=== PATIENT | male | born 1960 | race African-American/Black ===

== ENCOUNTER 2016-08-03 01:30 | Emergency (ER) | payer MEDICAID ==
[~2016-08-03] VITALS: Ht 175.3 cm; Wt 80.0 kg
[~2016-08-03 01:30] MED LIST: ALBU8.5H3 INH; AMLO5TAB2; ASPI-621 PO; CHLO25TA PO; ERGO500017 PO; GABA300C10 PO; HYDR25TA6; INSU100V12 SQ; INSULIN; LORA10TA62 PO; METF10002 PO; METF850T; METO25TA91; OXYC-74 PO; SERT50TA5 PO; SIMV20TA3; TRAZ150T68 PO; VALS160T3
[2016-08-03] MEDS ORDERED: ACETAMINOPHEN 325 MG TABLET ONE (02:24)
[2016-08-03] MEDS ORDERED: SODIUM CHLORIDE FLUSH 10ML SYR IVF ONE (02:30)
[2016-08-03] MEDS ORDERED: ACETAMINOPHEN 325 MG TABLET PO ONE (02:30)
[2016-08-03] MEDS ORDERED: SODIUM CHLORIDE 0.9% 1,000ML IVBOLUS ONE ×2 (02:30→03:00)
[2016-08-03 02:43] LABS: BLOOD UREA NITROGEN 20 mg/dL (7-18)
[2016-08-03 02:52] LABS: RAPID INFLUENZA A Negative (Negative)
[2016-08-03 02:53] LABS: RAPID INFLUENZA B POSITIVE (Negative)
[2016-08-03] MEDS ORDERED: OSELTAMIVIR 75 MG CAPSULE PO ONE (03:00)
[2016-08-03] MEDS ORDERED: POTASSIUM CHLORIDE 20 MEQ TAB.ER.PRT ONE (03:23)
[2016-08-03] MEDS ORDERED: POTASSIUM CHLORIDE 20 MEQ TAB.ER.PRT PO ONE (03:30)
[2016-08-03 04:09] VITALS: BP 122/70
== END 2016-08-03 04:50 | disposition home or self-care (01) ==
LOC: ED 03:55
DX: J10.1 Influenza due to other identified influenza virus with other respiratory manifestations (principal); B34.9 Viral infection, unspecified; E78.00 Pure hypercholesterolemia, unspecified; E87.6 Hypokalemia; I12.9 Hypertensive chronic kidney disease with stage 1 through stage 4 chronic kidney disease, or unspecified chronic kidney disease; R50.9 Fever, unspecified; R73.9 Hyperglycemia, unspecified
CPT/HCPCS: 36415; 71010; 80048; 81003; 82040; 85025; 87400; 96360; 96361; 99285; J7030

== ENCOUNTER 2017-01-20 18:44 | Emergency (ER) | payer MEDICAID ==
[~2017-01-20] VITALS: Ht 175.3 cm; Wt 89.7 kg
[~2017-01-20 18:44] MED LIST changes: -ALBU8.5H3 INH; +ALBU8.5H8 INH; +OXYC-296 PO; -OXYC-74 PO; +TRAZ150T62 PO; -TRAZ150T68 PO
[2017-01-20 18:45] VITALS: BP 152/103
== END 2017-01-20 20:54 | disposition home or self-care (01) ==
LOC: ED 20:48
DX: L98.9 Disorder of the skin and subcutaneous tissue, unspecified (principal); E78.00 Pure hypercholesterolemia, unspecified; G89.29 Other chronic pain; I10 Essential (primary) hypertension; M54.9 Dorsalgia, unspecified
CPT/HCPCS: 99283

== ENCOUNTER 2017-03-22 01:06 | Emergency (ER) | payer MEDICAID ==
[~2017-03-22] VITALS: Ht 175.3 cm; Wt 87.8 kg
[2017-03-22] MEDS ORDERED: KETOROLAC 30 MG/1 ML ONE (02:39)
[2017-03-22] MEDS ORDERED: OXYcodone/APAP 10/325MG TABLET ONE (02:40)
[2017-03-22] MEDS ORDERED: KETOROLAC 30 MG/1 ML IM ONE (03:00)
[2017-03-22] MEDS ORDERED: OXYcodone/APAP 10/325MG TABLET PO ONE (03:00)
[2017-03-22 04:16] VITALS: BP 135/74
== END 2017-03-22 04:47 | disposition home or self-care (01) ==
LOC: ED 03:55
DX: S93.422A Sprain of deltoid ligament of left ankle, initial encounter (principal); S70.01XA Contusion of right hip, initial encounter; I10 Essential (primary) hypertension; E78.00 Pure hypercholesterolemia, unspecified; W19.XXXA Unspecified fall, initial encounter; Y93.89 Activity, other specified; Y92.89 Other specified places as the place of occurrence of the external cause; Y99.8 Other external cause status
CPT/HCPCS: 72190; 73610; 96372; 99284; J1885

== ENCOUNTER 2017-04-24 13:39 | Emergency (ER) | payer MEDICAID ==
[~2017-04-24] VITALS: Ht 175.3 cm; Wt 86.5 kg
[2017-04-24 13:49] VITALS: BP 127/85
== END 2017-04-24 18:08 ==
LOC: ED 16:09
DX: R11.0 Nausea (principal); R19.7 Diarrhea, unspecified; R51 Headache; Z53.21 Procedure and treatment not carried out due to patient leaving prior to being seen by health care provider

== ENCOUNTER 2017-08-08 19:27 | Emergency (ER) | payer MEDICAID ==
[~2017-08-08] VITALS: Ht 175.3 cm; Wt 88.6 kg
[2017-08-08 20:12] LABS: BASOPHILS # (AUTO) 0.06 x10^3/uL (0-0.1); BASOPHILS % (AUTO) 1 % (0-1); EOSINOPHILS # (AUTO) 0.11 x10^3/uL (0-0.4); EOSINOPHILS % (AUTO) 2 % (1-7); LYMPHOCYTES # (AUTO) 1.69 x10^3/uL (1-3.4); LYMPHOCYTES % (AUTO) 25 % (22-44); MD NO; MEAN CORPUSCULAR HGB CONC 32.6 g/dL (33.2-36.2); MEAN CORPUSCULAR VOLUME 89.1 fL (81-97); MEAN PLATELET VOLUME 8.5 fL (7.4-10.4); MONOCYTES # (AUTO) 0.47 x10^3/uL (0.2-0.8); MONOCYTES % (AUTO) 7 % (2-9); NEUTROPHILS # (AUTO) 4.32 x10^3/uL (1.8-6.8); NEUTROPHILS % (AUTO) 65 % (42-75); PLATELET COUNT 222 x10^3/uL (130-400); RED BLOOD COUNT 5.48 x10^6/uL (4.38-5.82); RED CELL DISTRIBUTION WIDTH 14.3 % (9.4-14.8)
[2017-08-08 20:23] LABS: ALANINE AMINOTRANSFERASE 24 U/L (12-78); ALBUMIN 3.7 g/dL (3.4-5.0); ANION GAP 7 mmol/L (5-15); CALCIUM 9.2 mg/dL (8.5-10.1); CHLORIDE 103 mmol/L (98-107); CREATININE 1.55 mg/dL (0.7-1.3)
[2017-08-08 20:25] LABS: ALKALINE PHOSPHATASE 54 U/L (45-117); BILIRUBIN,TOTAL 0.4 mg/dL (0.2-1.0); TOTAL PROTEIN 7.3 g/dL (6.4-8.2)
[2017-08-08] MEDS ORDERED: METOCLOPRAMIDE 5 MG/ML, 2ML IVPush ONE (20:30)
[2017-08-08 21:19] LABS: MICROSCOPIC NOT IND
[2017-08-08 21:27] LABS: CULTURE INDICATED? NO
[2017-08-08 22:46] VITALS: BP 137/88
== END 2017-08-08 22:50 | disposition home or self-care (01) ==
LOC: ED 22:05
DX: R10.84 Generalized abdominal pain (principal); N18.9 Chronic kidney disease, unspecified; E11.22 Type 2 diabetes mellitus with diabetic chronic kidney disease; E11.65 Type 2 diabetes mellitus with hyperglycemia; I12.9 Hypertensive chronic kidney disease with stage 1 through stage 4 chronic kidney disease, or unspecified chronic kidney disease; E78.00 Pure hypercholesterolemia, unspecified; G89.29 Other chronic pain
CPT/HCPCS: 36415; 74021; 74176; 80053; 81003; 83690; 85025; 93005; 99285

== ENCOUNTER 2017-09-22 19:55 | Emergency (ER) | payer MEDICAID ==
[~2017-09-22] VITALS: Ht 175.3 cm; Wt 87.5 kg
[2017-09-22] MEDS ORDERED: ONDANSETRON ODT 4 MG ONE (20:59)
[2017-09-22] MEDS ORDERED: ONDANSETRON ODT 4 MG PO ONE (21:00)
[2017-09-22 21:23] LABS: BASOPHILS # (AUTO) 0.03 x10^3/uL (0-0.1); BASOPHILS % (AUTO) 0 % (0-1); EOSINOPHILS # (AUTO) 0.11 x10^3/uL (0-0.4); EOSINOPHILS % (AUTO) 2 % (1-7); LYMPHOCYTES # (AUTO) 1.63 x10^3/uL (1-3.4); LYMPHOCYTES % (AUTO) 27 % (22-44); MD NO; MEAN CORPUSCULAR HEMOGLOBIN 29.2 pg (27.5-34.5); MEAN CORPUSCULAR HGB CONC 32.5 g/dL (33.2-36.2); MEAN CORPUSCULAR VOLUME 89.8 fL (81-97); MEAN PLATELET VOLUME 9.3 fL (7.4-10.4); MONOCYTES # (AUTO) 0.48 x10^3/uL (0.2-0.8); MONOCYTES % (AUTO) 8 % (2-9); NEUTROPHILS # (AUTO) 3.69 x10^3/uL (1.8-6.8); NEUTROPHILS % (AUTO) 62 % (42-75); PLATELET COUNT 221 x10^3/uL (130-400); RED CELL DISTRIBUTION WIDTH 13.7 % (9.4-14.8)
[2017-09-22 21:27] LABS: ALANINE AMINOTRANSFERASE 30 U/L (12-78); ALBUMIN 3.7 g/dL (3.4-5.0); ANION GAP 5 mmol/L (5-15); CHLORIDE 99 mmol/L (98-107); CREATININE 1.81 mg/dL (0.7-1.3)
[2017-09-22 21:29] LABS: ALKALINE PHOSPHATASE 69 U/L (45-117); BILIRUBIN,TOTAL 0.2 mg/dL (0.2-1.0); TOTAL PROTEIN 7.1 g/dL (6.4-8.2)
[2017-09-22] MEDS ORDERED: INSULIN REGULAR 100 UNITS/ML, 3ML VIAL ONE (21:56)
[2017-09-22] MEDS ORDERED: INSULIN REGULAR 100 UNITS/ML, 3ML VIAL SQ-INSULIN SCH (22:00)
[2017-09-22 22:01] VITALS: BP 121/82
== END 2017-09-22 22:06 | disposition home or self-care (01) ==
LOC: ED 22:05
DX: A09 Infectious gastroenteritis and colitis, unspecified (principal); E11.65 Type 2 diabetes mellitus with hyperglycemia; I10 Essential (primary) hypertension; E78.00 Pure hypercholesterolemia, unspecified
CPT/HCPCS: 36415; 80053; 85025; 96372; 99284; Q0162

== ENCOUNTER 2017-10-22 02:51 | Emergency (ER) | payer MEDICAID ==
[~2017-10-22] VITALS: Ht 175.3 cm; Wt 86.0 kg
[2017-10-22 03:46] LABS: BASOPHILS # (AUTO) 0.05 x10^3/uL (0-0.1); BASOPHILS % (AUTO) 1 % (0-1); EOSINOPHILS # (AUTO) 0.11 x10^3/uL (0-0.4); EOSINOPHILS % (AUTO) 2 % (1-7); LYMPHOCYTES # (AUTO) 1.88 x10^3/uL (1-3.4); LYMPHOCYTES % (AUTO) 26 % (22-44); MD NO; MEAN CORPUSCULAR HEMOGLOBIN 29.8 pg (27.5-34.5); MEAN CORPUSCULAR HGB CONC 33.3 g/dL (33.2-36.2); MEAN CORPUSCULAR VOLUME 89.4 fL (81-97); MEAN PLATELET VOLUME 9.1 fL (7.4-10.4); MONOCYTES # (AUTO) 0.45 x10^3/uL (0.2-0.8); MONOCYTES % (AUTO) 6 % (2-9); NEUTROPHILS # (AUTO) 4.68 x10^3/uL (1.8-6.8); NEUTROPHILS % (AUTO) 65 % (42-75); PLATELET COUNT 225 x10^3/uL (130-400); RED BLOOD COUNT 5.75 x10^6/uL (4.38-5.82); RED CELL DISTRIBUTION WIDTH 14.4 % (9.4-14.8)
[2017-10-22 03:51] LABS: ALBUMIN 3.8 g/dL (3.4-5.0); ANION GAP 6 mmol/L (5-15); CALCIUM 9.3 mg/dL (8.5-10.1); CHLORIDE 101 mmol/L (98-107); CREATININE 1.62 mg/dL (0.7-1.3)
[2017-10-22] MEDS ORDERED: POTASSIUM CHLORIDE 20 MEQ TAB.ER.PRT ONE (04:23)
[2017-10-22] MEDS ORDERED: POTASSIUM CHLORIDE 20 MEQ TAB.ER.PRT PO ONE (04:30)
[2017-10-22 05:30] VITALS: BP 125/78
== END 2017-10-22 05:32 | disposition home or self-care (01) ==
LOC: ED 03:19
DX: E11.65 Type 2 diabetes mellitus with hyperglycemia (principal); E87.6 Hypokalemia; E78.00 Pure hypercholesterolemia, unspecified
CPT/HCPCS: 36415; 80048; 82040; 85025; 99284

== ENCOUNTER 2017-12-07 07:18 | Emergency (ER) | payer MEDICAID ==
[~2017-12-07] VITALS: Ht 175.3 cm; Wt 89.3 kg
[~2017-12-07 07:18] MED LIST changes: -AMLO5TAB2; +AMLO5TAB7
[2017-12-07 09:01] LABS: MEAN CORPUSCULAR HEMOGLOBIN 29.4 pg (27.5-34.5); MEAN CORPUSCULAR HGB CONC 33.3 g/dL (33.2-36.2); MEAN CORPUSCULAR VOLUME 88.3 fL (81-97); MEAN PLATELET VOLUME 9.1 fL (7.4-10.4); PLATELET COUNT 206 x10^3/uL (130-400); RED BLOOD COUNT 5.63 x10^6/uL (4.38-5.82); RED CELL DISTRIBUTION WIDTH 14.5 % (9.4-14.8)
[2017-12-07 09:06] LABS: ALBUMIN 3.6 g/dL (3.4-5.0); ANION GAP 6 mmol/L (5-15); CHLORIDE 104 mmol/L (98-107)
[2017-12-07 09:09] LABS: ALANINE AMINOTRANSFERASE 31 U/L (12-78); ALKALINE PHOSPHATASE 74 U/L (45-117); BILIRUBIN,TOTAL 0.4 mg/dL (0.2-1.0); CREATININE 1.41 mg/dL (0.7-1.3); TOTAL PROTEIN 7.1 g/dL (6.4-8.2)
[2017-12-07 09:25] LABS: BASOPHILS # (AUTO) 0.02 x10^3/uL (0-0.1); BASOPHILS % (AUTO) 1 % (0-1); EOSINOPHILS # (AUTO) 0.17 x10^3/uL (0-0.4); EOSINOPHILS % (AUTO) 4 % (1-7); LYMPHOCYTES # (AUTO) 0.94 x10^3/uL (1-3.4); LYMPHOCYTES % (AUTO) 20 % (22-44); MD SCAN; MONOCYTES # (AUTO) 0.58 x10^3/uL (0.2-0.8); MONOCYTES % (AUTO) 13 % (2-9); NEUTROPHILS # (AUTO) 2.89 x10^3/uL (1.8-6.8); NEUTROPHILS % (AUTO) 63 % (42-75)
[2017-12-07] MEDS ORDERED: POTASSIUM CHLORIDE 10% 40 MEQ/30 ML UDC PO ONE (10:00)
[2017-12-07 11:16] LABS: MICROSCOPIC NOT IND
[2017-12-07 11:17] LABS: CULTURE INDICATED? NO
[2017-12-07 12:32] VITALS: BP 120/90
[2017-12-07 13:05] LABS: CLOSTRIDIUM DIFFICILE ANTIGEN NEGATIVE; CLOSTRIDIUM DIFFICILE TOXIN NEGATIVE (Negative)
== END 2017-12-07 13:47 | disposition home or self-care (01) ==
LOC: ED 09:20
DX: K52.9 Noninfective gastroenteritis and colitis, unspecified (principal); J02.8 Acute pharyngitis due to other specified organisms; E87.6 Hypokalemia; B97.89 Other viral agents as the cause of diseases classified elsewhere; E11.9 Type 2 diabetes mellitus without complications; I10 Essential (primary) hypertension; E78.00 Pure hypercholesterolemia, unspecified
CPT/HCPCS: 36415; 74022; 80053; 81003; 85025; 87081; 87324; 87880; 89055; 99285

== ENCOUNTER 2018-04-05 09:57 | Emergency (ER) | payer MEDICAID ==
[~2018-04-05] VITALS: Ht 175.3 cm; Wt 79.4 kg
[~2018-04-05 09:57] MED LIST changes: +AMLO-150; -AMLO5TAB7; -ASPI-621 PO; +ASPI81TA45 PO
--- NOTE | 2018-04-05 10:12 | NUR ---
AMBULTORY TO ED ROOM 28. VOIDED URINE SPECIMEN ON COUNTER: CLEAR DARK YELLOW. DR DYSON BS FOR EXAM. A&OX4, RESP EVEN & UNLABORED, NO COUGH NOTED, SPEECH CLEAR, SKIN WNL. C/O COUGH X 2 WKS, CONGESTION, SORE THROAT, DIARRHEA (WATERY) X 1 MONTH, VOMITING X 2 WK (VOMITS AFTER EATING "MOST OF THE TIME"). GOT FLU VACC FOR THIS SEASON. DENIES ANTIBIOTIC INTAKE, CP. STARTED TRULICITY 2 MO AGO.
[2018-04-05] MEDS ORDERED: ONDANSETRON ODT 4 MG PO ONE (10:30)
[2018-04-05] MEDS ORDERED: ONDANSETRON ODT 4 MG ONE (10:40)
--- NOTE | 2018-04-05 10:42 | NUR ---
TO XR PER MELBA
[2018-04-05 10:52] LABS: RAPID INFLUENZA A Negative (Negative); RAPID INFLUENZA B Negative (Negative)
[2018-04-05 10:53] LABS: ALBUMIN 3.9 g/dL (3.4-5.0); ANION GAP 6 mmol/L (5-15); CALCIUM 9.3 mg/dL (8.5-10.1); CHLORIDE 103 mmol/L (98-107)
[2018-04-05 10:55] LABS: ALANINE AMINOTRANSFERASE 24 U/L (12-78); ALKALINE PHOSPHATASE 68 U/L (45-117); BILIRUBIN,TOTAL 0.5 mg/dL (0.2-1.0); CREATININE 1.58 mg/dL (0.7-1.3); TOTAL PROTEIN 7.6 g/dL (6.4-8.2)
[2018-04-05 10:56] LABS: MEAN CORPUSCULAR HEMOGLOBIN 28.4 pg (27.5-34.5); MEAN CORPUSCULAR HGB CONC 32.1 g/dL (33.2-36.2); MEAN CORPUSCULAR VOLUME 88.5 fL (81-97); MEAN PLATELET VOLUME 8.8 fL (7.4-10.4); PLATELET COUNT 224 x10^3/uL (130-400); RED BLOOD COUNT 5.91 x10^6/uL (4.38-5.82); RED CELL DISTRIBUTION WIDTH 14.1 % (9.4-14.8)
--- NOTE | 2018-04-05 11:03 | NUR ---
PO CHALLENGE STARTED W/ WATER
[2018-04-05 11:14] LABS: BASOPHILS # (AUTO) 0.01 x10^3/uL (0-0.1); BASOPHILS % (AUTO) 0 % (0-1); EOSINOPHILS # (AUTO) 0.12 x10^3/uL (0-0.4); EOSINOPHILS % (AUTO) 2 % (1-7); LYMPHOCYTES # (AUTO) 1.19 x10^3/uL (1-3.4); LYMPHOCYTES % (AUTO) 17 % (22-44); MD SCAN; MONOCYTES # (AUTO) 0.55 x10^3/uL (0.2-0.8); MONOCYTES % (AUTO) 8 % (2-9); NEUTROPHILS # (AUTO) 5.08 x10^3/uL (1.8-6.8); NEUTROPHILS % (AUTO) 73 % (42-75)
[2018-04-05 11:20] LABS: CULTURE INDICATED? NO; MICROSCOPIC NOT IND
[2018-04-05] MEDS ORDERED: AMLO-150 PO (11:22)
[2018-04-05] MEDS ORDERED: TRAZ-137 PO (11:22)
[2018-04-05] MEDS ORDERED: ASPI-496 PO (11:22)
[2018-04-05] MEDS ORDERED: DULA1.5P INJ (11:22)
[2018-04-05] MEDS ORDERED: EMPA25TA PO (11:22)
[2018-04-05] MEDS ORDERED: CHOL10003 PO (11:22)
--- NOTE | 2018-04-05 11:24 | NUR ---
DENIED NAUSEA POST WATER INTAKE. PT RESTING QUIETLY ON BED, WATCHING TV, SIDE RAILS UP X2, CALL LIGHT W/IN REACH. MONITORING CONTINUES: NSR
[2018-04-05 12:47] VITALS: BP 108/77
== END 2018-04-05 12:51 | disposition home or self-care (01) ==
LOC: ED 10:39
DX: K52.9 Noninfective gastroenteritis and colitis, unspecified (principal); J02.9 Acute pharyngitis, unspecified; I12.9 Hypertensive chronic kidney disease with stage 1 through stage 4 chronic kidney disease, or unspecified chronic kidney disease; N18.9 Chronic kidney disease, unspecified; E11.22 Type 2 diabetes mellitus with diabetic chronic kidney disease; E11.65 Type 2 diabetes mellitus with hyperglycemia; E78.00 Pure hypercholesterolemia, unspecified
CPT/HCPCS: 36415; 71046; 80053; 81003; 85025; 87400; 93005; 99284; Q0162

== ENCOUNTER 2018-09-18 16:17 | Observation (INO) | payer MEDICAID ==
[~2018-09-18] VITALS: Ht 175.3 cm; Wt 76.0 kg
[~2018-09-18 16:17] MED LIST changes: +AMLO-150 PO; +ASPI-496 PO; +CHOL10003 PO; +DULA1.5P INJ; +EMPA25TA PO; -METO25TA91; +METO25TA91 PO; +SERT50TA28 PO; -SERT50TA5 PO; -SIMV20TA3; +SIMV20TA3 PO; +TRAZ-137 PO; -VALS160T3; +VALS160T3 PO
[2018-09-18] MEDS ORDERED: SODIUM CHLORIDE FLUSH 10ML SYR IVF ONE (16:30)
[2018-09-18] MEDS ORDERED: ASPIRIN 81 MG TABLET CHEW PO ONE (16:30)
--- NOTE | 2018-09-18 16:41 | NUR ---
PT C/O CP 11/08, SOB, AND DIZZINESS X 1 HR. PT DENIES N/V BUT REPORTS DIARHHEA X 2 DAYS. PT PLACED ON NIBP, CONT PULSE OX, CONT SUPERVISORY CBP OFFICER. ERMD IN TO EVAL PT. PIV PLACED, LABS DRAWN. POC DISCUSSED
[2018-09-18 17:03] LABS: MEAN CORPUSCULAR HEMOGLOBIN 29.3 pg (27.5-34.5); MEAN CORPUSCULAR VOLUME 91.5 fL (81-97); MEAN PLATELET VOLUME 8.5 fL (7.4-10.4); PLATELET COUNT 246 x10^3/uL (130-400); RED BLOOD COUNT 6.21 x10^6/uL (4.38-5.82); RED CELL DISTRIBUTION WIDTH 13.9 % (9.4-14.8)
[2018-09-18 17:13] LABS: ALANINE AMINOTRANSFERASE 24 U/L (12-78); ALBUMIN 4.6 g/dL (3.4-5.0); ANION GAP 7 mmol/L (5-15); CALCIUM 9.9 mg/dL (8.5-10.1); CHLORIDE 105 mmol/L (98-107); CREATININE 1.77 mg/dL (0.7-1.3)
[2018-09-18 17:17] LABS: ALKALINE PHOSPHATASE 66 U/L (45-117); BILIRUBIN,TOTAL 0.7 mg/dL (0.2-1.0); TOTAL PROTEIN 8.7 g/dL (6.4-8.2); TROPONIN I < 0.015 ng/mL (0.000-0.045)
[2018-09-18] MEDS ORDERED: ASPIRIN 81 MG TABLET CHEW ONE (17:47)
[2018-09-18] MEDS ORDERED: KETOROLAC 30 MG/1 ML ONE (17:47)
[2018-09-18] MEDS ORDERED: KETOROLAC 30 MG/1 ML IVPush ONE (18:00)
[2018-09-18 18:08] LABS: BASOPHILS # (AUTO) 0.04 x10^3/uL (0-0.1); BASOPHILS % (AUTO) 1 % (0-1); EOSINOPHILS # (AUTO) 0.06 x10^3/uL (0-0.4); EOSINOPHILS % (AUTO) 1 % (1-7); LYMPHOCYTES # (AUTO) 1.51 x10^3/uL (1-3.4); LYMPHOCYTES % (AUTO) 26 % (22-44); MD NO; MONOCYTES # (AUTO) 0.48 x10^3/uL (0.2-0.8); MONOCYTES % (AUTO) 8 % (2-9); NEUTROPHILS # (AUTO) 3.79 x10^3/uL (1.8-6.8); NEUTROPHILS % (AUTO) 64 % (42-75)
--- NOTE | 2018-09-18 18:16 | NUR ---
[facility] TELEPHONE HAND-OFF REPORT GIVEN TO FREDDY PEGUERO ON TELE. PATIENT READY TO GO TO HOSPITAL ROOM.
[2018-09-18] MEDS ORDERED: OMNIPAQUE 350 MG/ML, 100ML BOTTLE ONE (18:19)
[2018-09-18] MEDS ORDERED: TEMPLATE NON-FORMULARY MED. (Dulaglutide (Trulicity) 0.5 ML) INJ SCH (18:30)
[2018-09-18] MEDS ORDERED: NITROGLYCERIN 0.4 MG BOTTLE (25 TABS) SL PRN (18:30)
[2018-09-18] MEDS ORDERED: morphine SULFATE 10 MG/ML, 1ML IVPush PRN (18:30)
[2018-09-18] MEDS ORDERED: ONDANSETRON ODT 4 MG PO PRN (18:30)
[2018-09-18] MEDS ORDERED: ACETAMINOPHEN 325 MG TABLET PO PRN (18:30)
[2018-09-18] MEDS ORDERED: POLYETHYLENE GLYCOL 17 GM PACKET PO PRN (18:30)
[2018-09-18] MEDS ORDERED: BISACODYL 10 MG SUPP PR PRN (18:30)
[2018-09-18 18:36] VITALS: BP 114/80
[2018-09-18] MEDS ORDERED: POTASSIUM CHLORIDE 20 MEQ TAB.ER.PRT PO ONE (19:00)
[2018-09-18 19:17] LABS: HEMOGLOBIN A1C 6.1 % (4.2-6.3)
[2018-09-18] MEDS: HEPARIN 5,000 UNITS/ML, 1ML SQ SCH (19:46)
[2018-09-18 19:49] VITALS: BP 114/80
[2018-09-18] MEDS: METOPROLOL SUCCINATE 25 MG TAB.ER.24H PO SCH (20:20)
[2018-09-18] MEDS ORDERED: TRAZODONE 100MG TABLET PO SCH (21:00)
[2018-09-18] MEDS ORDERED: SERTRALINE 50MG TABLET PO SCH (21:00)
[2018-09-18 23:25] LABS: TROPONIN I < 0.015 ng/mL (0.000-0.045)
[2018-09-19 01:21] VITALS: BP 124/79
[2018-09-19] MEDS: HEPARIN 5,000 UNITS/ML, 1ML SQ SCH ×2 (03:11→10:57)
[2018-09-19 05:57] LABS: BASOPHILS # (AUTO) 0.02 x10^3/uL (0-0.1); BASOPHILS % (AUTO) 0 % (0-1); EOSINOPHILS # (AUTO) 0.11 x10^3/uL (0-0.4); EOSINOPHILS % (AUTO) 2 % (1-7); LYMPHOCYTES # (AUTO) 1.95 x10^3/uL (1-3.4); LYMPHOCYTES % (AUTO) 41 % (22-44); MD NO; MEAN CORPUSCULAR HEMOGLOBIN 29.1 pg (27.5-34.5); MEAN CORPUSCULAR HGB CONC 32.4 g/dL (33.2-36.2); MEAN CORPUSCULAR VOLUME 89.8 fL (81-97); MEAN PLATELET VOLUME 8.3 fL (7.4-10.4); MONOCYTES # (AUTO) 0.52 x10^3/uL (0.2-0.8); MONOCYTES % (AUTO) 11 % (2-9); NEUTROPHILS # (AUTO) 2.13 x10^3/uL (1.8-6.8); NEUTROPHILS % (AUTO) 45 % (42-75); PLATELET COUNT 200 x10^3/uL (130-400); RED BLOOD COUNT 5.52 x10^6/uL (4.38-5.82); RED CELL DISTRIBUTION WIDTH 14.4 % (9.4-14.8)
[2018-09-19 06:10] LABS: CALCIUM 8.7 mg/dL (8.5-10.1); CHLORIDE 106 mmol/L (98-107)
[2018-09-19 06:18] LABS: ALANINE AMINOTRANSFERASE 21 U/L (12-78); ALBUMIN 3.6 g/dL (3.4-5.0); ALKALINE PHOSPHATASE 52 U/L (45-117); ANION GAP 6 mmol/L (5-15); BILIRUBIN,TOTAL 0.6 mg/dL (0.2-1.0); CREATININE 1.54 mg/dL (0.7-1.3); TOTAL PROTEIN 6.8 g/dL (6.4-8.2); TROPONIN I < 0.015 ng/mL (0.000-0.045)
[2018-09-19 06:35] VITALS: BP 114/76
[2018-09-19] MEDS: METOPROLOL SUCCINATE 25 MG TAB.ER.24H PO SCH (08:00)
[2018-09-19] MEDS ORDERED: REGADENOSON 0.4 MG/5 ML SYRINGE ONE (08:19)
[2018-09-19] MEDS ORDERED: CHOLECALCIFEROL 1,000 UNIT TABLET PO SCH (09:00)
[2018-09-19] MEDS ORDERED: SIMVASTATIN 20 MG TABLET PO SCH ×2 (09:00→21:00)
[2018-09-19] MEDS ORDERED: ASPIRIN 81 MG TABLET EC PO SCH (09:00)
[2018-09-19] MEDS ORDERED: AMLODIPINE 5 MG TABLET PO SCH (09:00)
[2018-09-19] MEDS ORDERED: TEMPLATE NON-FORMULARY MED. (Empagliflozin (Jardiance) 1 TAB) PO SCH (09:00)
[2018-09-19] MEDS ORDERED: VALSARTAN 160 MG TABLET PO SCH (09:00)
[2018-09-19] MEDS ORDERED: SENNA/DOCUSATE TABLET PO SCH (09:00)
[2018-09-19] MEDS ORDERED: POTASSIUM CHLORIDE 20 MEQ TAB.ER.PRT PO ONE (10:30)
[2018-09-19 14:12] VITALS: BP 105/70
== END 2018-09-19 18:28 | disposition home or self-care (01) ==
LOC: ED 17:25 → INTOOBSV 17:26 → EDIP 17:26 → ED 17:26 → 5SO 18:26
PROVIDERS: ADMIT Internal Medicine; ATTEND Internal Medicine
DX: R07.89 Other chest pain (principal); R55 Syncope and collapse; R00.0 Tachycardia, unspecified; I12.9 Hypertensive chronic kidney disease with stage 1 through stage 4 chronic kidney disease, or unspecified chronic kidney disease; E11.22 Type 2 diabetes mellitus with diabetic chronic kidney disease; N18.2 Chronic kidney disease, stage 2 (mild); E11.21 Type 2 diabetes mellitus with diabetic nephropathy; D75.1 Secondary polycythemia; E87.6 Hypokalemia; E78.5 Hyperlipidemia, unspecified; Z79.82 Long term (current) use of aspirin; Z79.899 Other long term (current) drug therapy
CPT/HCPCS: 36415; 71045; 71275; 78452; 80053; 82962; 83036; 84484; 85025; 93005; 93017; 96372; 96374; 99284; A9502; C9898; G0378; J1644; J1885; J2785; Q9967

== ENCOUNTER 2018-11-08 23:11 | Emergency (ER) | payer MEDICAID ==
[~2018-11-08] VITALS: Ht 175.3 cm; Wt 78.0 kg
[2018-11-09 00:45] VITALS: BP 114/77
== END 2018-11-09 00:47 | disposition home or self-care (01) ==
LOC: ED 11-09 00:26
DX: S16.1XXA Strain of muscle, fascia and tendon at neck level, initial encounter (principal); M25.511 Pain in right shoulder; E78.5 Hyperlipidemia, unspecified; E11.65 Type 2 diabetes mellitus with hyperglycemia; I10 Essential (primary) hypertension; E78.00 Pure hypercholesterolemia, unspecified; V49.59XA Passenger injured in collision with other motor vehicles in traffic accident, initial encounter; Y93.89 Activity, other specified; Y92.89 Other specified places as the place of occurrence of the external cause; Y99.8 Other external cause status
CPT/HCPCS: 72050; 73030; 96372; 99283; J1885

== ENCOUNTER 2019-01-26 12:39 | Emergency (ER) | payer MEDICAID ==
[~2019-01-26] VITALS: Ht 175.3 cm; Wt 81.0 kg
--- NOTE | 2019-01-26 14:06 | NUR ---
PT TO ED FOR ELEVATED BP AND LINDA "SINCE YESTERDAY." PT STATES WAS SEEN HERE FOR SAME LAST WEEK. PT IS A POOR HISTORIAN AND HAS GIVEN DIFFERENT ANSWERED TO WHEN HE LAST TOOK HIS MEDICATIONS FOR HTN. PT CONNECTED TO ALL MONITORS. HTN, ALL OTHER VSS. DR. DYSON TO BS FOR ASSESSMENT. AWAITNG ORDERS.
[2019-01-26] MEDS ORDERED: KETOROLAC 30 MG/1 ML IVPush ONE (14:30)
[2019-01-26] MEDS ORDERED: ONDANSETRON 2MG/ML, 2ML IVPush ONE (14:30)
[2019-01-26] MEDS ORDERED: SODIUM CHLORIDE FLUSH 10ML SYR IVF ONE (14:30)
[2019-01-26 14:37] LABS: ANION GAP 6 mmol/L (5-15); CALCIUM 8.9 mg/dL (8.5-10.1); CHLORIDE 108 mmol/L (98-107)
[2019-01-26] MEDS ORDERED: KETOROLAC 30 MG/1 ML ONE (14:37)
[2019-01-26] MEDS ORDERED: ONDANSETRON 2MG/ML, 2ML ONE (14:37)
[2019-01-26 14:38] LABS: CREATININE 1.23 mg/dL (0.7-1.3)
[2019-01-26 15:00] LABS: BASOPHILS # (AUTO) 0.02 x10^3/uL (0-0.1); BASOPHILS % (AUTO) 0 % (0-1); EOSINOPHILS % (AUTO) 1 % (1-7); LYMPHOCYTES # (AUTO) 1.16 x10^3/uL (1-3.4); LYMPHOCYTES % (AUTO) 16 % (22-44); MD NO; MEAN CORPUSCULAR HEMOGLOBIN 28.7 pg (27.5-34.5); MEAN CORPUSCULAR HGB CONC 31.2 g/dL (33.2-36.2); MEAN CORPUSCULAR VOLUME 91.9 fL (81-97); MEAN PLATELET VOLUME 8.4 fL (7.4-10.4); MONOCYTES # (AUTO) 0.51 x10^3/uL (0.2-0.8); MONOCYTES % (AUTO) 7 % (2-9); NEUTROPHILS # (AUTO) 5.59 x10^3/uL (1.8-6.8); NEUTROPHILS % (AUTO) 76 % (42-75); PLATELET COUNT 277 x10^3/uL (130-400); RED BLOOD COUNT 6.38 x10^6/uL (4.38-5.82); RED CELL DISTRIBUTION WIDTH 14.7 % (9.4-14.8)
--- NOTE | 2019-01-26 15:01 | NUR ---
pt resting in room wtih lights dimmed. htn, vss. iv established and labs drawn. pt medicated per may. pt states solis remains 11/08. hob adjusted for comfort. no other needs expressed. call light within reach. awaiting results.
[2019-01-26 15:45] VITALS: BP 141/91
--- NOTE | 2019-01-26 15:45 | NUR ---
PT RESTING IN ROOM WITH LIGHTS DIMMED. BP IMPROVING AFTER MEDICATION ADMINISTRATION. VSS. NO NEEDS EXPRESSED. AWAITING EKG. PLAN TO DC.
== END 2019-01-26 16:11 | disposition home or self-care (01) ==
LOC: ED 15:45
DX: I10 Essential (primary) hypertension (principal); R51 Headache
CPT/HCPCS: 36415; 80048; 82040; 85025; 93005; 96374; 96375; 99284; J1885; J2405

== ENCOUNTER 2019-05-06 09:56 | Emergency (ER) | payer MEDICAID ==
[~2019-05-06] VITALS: Ht 175.3 cm; Wt 80.9 kg
[~2019-05-06 09:56] MED LIST changes: +SIMV20TA19 PO; -SIMV20TA3 PO; -TRAZ-137 PO; +TRAZ-175 PO
[2019-05-06 09:57] VITALS: BP 121/92
[2019-05-06] MEDS ORDERED: AZITHROMYCIN 250 MG TABLET ONE (10:21)
[2019-05-06] MEDS ORDERED: CEFTRIAXONE 250 MG ONE (10:21)
[2019-05-06] MEDS ORDERED: LIDOCAINE-MPF 1%, 2ML ONE (10:21)
[2019-05-06] MEDS ORDERED: CEFTRIAXONE 250 MG IM ONE (10:30)
[2019-05-06] MEDS ORDERED: AZITHROMYCIN 500 MG TABLET PO ONE (10:30)
== END 2019-05-06 10:48 | disposition home or self-care (01) ==
LOC: ED 10:44
DX: N34.1 Nonspecific urethritis (principal); I10 Essential (primary) hypertension; E11.9 Type 2 diabetes mellitus without complications
CPT/HCPCS: 87491; 87591; 96372; 99283; J0696

== ENCOUNTER 2019-05-26 00:20 | Emergency (ER) | payer MEDICAID ==
[~2019-05-26] VITALS: Ht 175.3 cm; Wt 82.1 kg
[2019-05-26 00:24] VITALS: BP 130/95
--- NOTE | 2019-05-26 01:10 | NUR ---
pt to room from lobby
--- NOTE | 2019-05-26 01:53 | NUR ---
BREAK RN: PT. RESTING ON GURNEY WITH NO DISTRESS NOTED. X-RAY PENDING.
--- NOTE | 2019-05-26 02:35 | NUR ---
BREAK RN: REPORT BACK TO FREDDY THOMAS TO RE-ASSUME CARE OF PT.
[2019-05-26] MEDS ORDERED: KETOROLAC 60 MG/2 ML ONE (03:51)
[2019-05-26] MEDS ORDERED: KETOROLAC 60 MG/2 ML IM ONE (04:00)
== END 2019-05-26 03:58 | disposition home or self-care (01) ==
LOC: ED 03:17
DX: G89.11 Acute pain due to trauma (principal); M25.521 Pain in right elbow; M79.621 Pain in right upper arm; I10 Essential (primary) hypertension; E78.5 Hyperlipidemia, unspecified; E11.65 Type 2 diabetes mellitus with hyperglycemia; E78.00 Pure hypercholesterolemia, unspecified
CPT/HCPCS: 73080; 73110; 96372; 99284; J1885

== ENCOUNTER 2020-02-24 08:08 | Emergency (ER) | payer MEDICAID ==
[~2020-02-24] VITALS: Ht 175.3 cm; Wt 80.0 kg
--- NOTE | 2020-02-24 08:08 | NUR ---
PT CODE 250 IN LOBBY FOR NEAR SYNCOPE. PT C/O "HAVING A COLD FOR A FEW DAYS", COUGH, LINDA, SORE THROAT, DIARRHEA AND MILD NAUSEA. + CLOSE CONTACT WITH COVID + PERSON. PT SITTING UPRIGHT ON GURNEY WITH EYES CLOSED. NAD, VSS. WARM BLANKET PROVIDED. PT DENIES ANY NEEDS AT THIS TIME. PERSONAL BELONINGS AND CALL LIGHT WITHIN REACH.
[2020-02-24] MEDS ORDERED: ACETAMINOPHEN 500 MG TABLET ONE (08:28)
[2020-02-24] MEDS ORDERED: DEXAMETHASONE 4 MG TABLET ONE (08:28)
[2020-02-24] MEDS ORDERED: DEXAMETHASONE 4 MG TABLET PO ONE (08:30)
[2020-02-24] MEDS ORDERED: ACETAMINOPHEN 500 MG TABLET PO ONE (08:30)
[2020-02-24] MEDS ORDERED: PLEASE ENTER HEIGHT AND WEIGHT MC SCH (08:30)
[2020-02-24 08:41] LABS: BASOPHILS % (AUTO) 1 % (0-1); EOSINOPHILS % (AUTO) 4 % (1-7); LYMPHOCYTES % (AUTO) 24 % (22-44); MEAN CORPUSCULAR HEMOGLOBIN 29.9 pg (27.5-34.5); MEAN CORPUSCULAR HGB CONC 32.7 g/dL (33.2-36.2); MONOCYTES % (AUTO) 11 % (2-9); NEUTROPHILS % (AUTO) 60 % (42-75); PLATELET COUNT 247 x10^3/uL (130-400); RED BLOOD COUNT 5.71 x10^6/uL (4.38-5.82); RED CELL DISTRIBUTION WIDTH 15.3 % (9.4-14.8)
[2020-02-24 08:45] LABS: MD NO
[2020-02-24 08:50] LABS: ALANINE AMINOTRANSFERASE 23 U/L (12-78); ALBUMIN 3.7 g/dL (3.4-5.0); ANION GAP 5 mmol/L (5-15); CHLORIDE 110 mmol/L (98-107); CREATININE 1.46 mg/dL (0.7-1.3)
[2020-02-24 08:52] LABS: ALKALINE PHOSPHATASE 85 U/L (45-117); BILIRUBIN,TOTAL 0.6 mg/dL (0.2-1.0); TOTAL PROTEIN 7.9 g/dL (6.4-8.2)
--- NOTE | 2020-02-24 09:03 | NUR ---
PT SITTING UPRIGHT ON GURNEY WITH EYES CLOSED. NAD, VSS. PT REPORTS DCREASED SORE THROAT FOLLOWING DEALER SUPPORT TECHNICIAN. PT DENIES ANY NEEDS AT THIS TIME. PERSONAL BELONINGS AND CALL LIGHT WITHIN REACH.
--- NOTE | 2020-02-24 10:01 | NUR ---
Patient given discharge instructions and they have confirmed that they understand the instructions. Patient ambulatory with steady gait.
[2020-02-24 10:02] VITALS: BP 136/97
== END 2020-02-24 10:03 | disposition home or self-care (01) ==
LOC: ED 08:37
DX: B34.9 Viral infection, unspecified (principal); Z20.828 Contact with and (suspected) exposure to other viral communicable diseases; J04.0 Acute laryngitis; R19.7 Diarrhea, unspecified; R55 Syncope and collapse; I10 Essential (primary) hypertension; E11.9 Type 2 diabetes mellitus without complications; E78.5 Hyperlipidemia, unspecified
CPT/HCPCS: 36415; 71045; 80053; 85025; 87635; 93005; 99285

== ENCOUNTER 2020-06-02 03:08 | Emergency (ER) | payer MEDICAID ==
[~2020-06-02] VITALS: Ht 175.3 cm; Wt 76.9 kg
[~2020-06-02 03:08] MED LIST changes: +LORA-59 PO; -LORA10TA62 PO
--- NOTE | 2020-06-02 03:08 | NUR ---
INITIAL PT CONTACT. PT PRESENTS TO ED VIA EMS C/O ABD PAIN, N/V X2 DAYS. PT STATES "MY VOMIT IS KIND OF DARKER THAN NORMAL. I DON'T NOTICE ANY SIGNIFICANT BLOOD OR ANYTHING". PT SITTING UPRIGHT ON SHAHAB REILLY, VSS. PIV STARTED EN ROUTE, 34MG ZOFRAN AND 200ML NS GIVEN, PT REPORTS MINIMAL RELIEF OF NAUSEA. NO CURRENT VOMITING. PT PLACED ON CONTINUOUS PULSE OX AND CARDIAC MONITORING. PAYROLL BENEFITS CLERK AT BEDSIDE FOR EKG, ERP AT BEDSIDE. PT PROVIDED URINAL PER REQUEST.
[2020-06-02] MEDS ORDERED: MORPHINE SULFATE 4 MG/ML, 1ML ONE (03:19)
[2020-06-02] MEDS ORDERED: PROMETHAZINE 25 MG/ML, 1ML ONE (03:19)
[2020-06-02] MEDS ORDERED: ONDANSETRON 2MG/ML, 2ML ONE (03:19)
[2020-06-02 03:30] LABS: BASOPHILS % (AUTO) 0 % (0-1); EOSINOPHILS % (AUTO) 0 % (1-7); LYMPHOCYTES % (AUTO) 2 % (22-44); MEAN CORPUSCULAR HEMOGLOBIN 30.4 pg (27.5-34.5); MEAN CORPUSCULAR HGB CONC 32.7 g/dL (33.2-36.2); MEAN PLATELET VOLUME 8.4 fL (7.4-10.4); MONOCYTES % (AUTO) 3 % (2-9); NEUTROPHILS % (AUTO) 95 % (42-75); PLATELET COUNT 215 x10^3/uL (130-400); RED BLOOD COUNT 6.11 x10^6/uL (4.38-5.82); RED CELL DISTRIBUTION WIDTH 14.3 % (9.4-14.8)
[2020-06-02] MEDS ORDERED: ONDANSETRON 2MG/ML, 2ML IVPush ONE (03:30)
[2020-06-02] MEDS ORDERED: SODIUM CHLORIDE FLUSH 10ML SYR IVF ONE (03:30)
[2020-06-02] MEDS ORDERED: SODIUM CHLORIDE 0.9% 1,000ML IVBOLUS ONE (03:30)
[2020-06-02] MEDS ORDERED: MORPHINE SULFATE 4 MG/ML, 1ML IVPush PRN (03:30)
[2020-06-02] MEDS ORDERED: PROMETHAZINE 25 MG/ML, 1ML IM ONE (03:30)
[2020-06-02 03:35] LABS: MD NO
[2020-06-02 03:42] LABS: ALANINE AMINOTRANSFERASE 24 U/L (12-78); ALBUMIN 3.8 g/dL (3.4-5.0); ANION GAP 12 mmol/L (5-15); CALCIUM 8.9 mg/dL (8.5-10.1); CHLORIDE 109 mmol/L (98-107); CREATININE 1.54 mg/dL (0.7-1.3)
[2020-06-02 03:47] LABS: ALKALINE PHOSPHATASE 76 U/L (45-117); BILIRUBIN,TOTAL 0.8 mg/dL (0.2-1.0); TROPONIN I < 0.015 ng/mL (0.000-0.045)
[2020-06-02 04:02] VITALS: BP 121/80
--- NOTE | 2020-06-02 04:02 | NUR ---
PT SITTING UPRIGHT ON MELBA, SHAHAB, VSS. PT DENIES ANY NEEDS AT THIS TIME. PT REPORTS IMPROVED PAIN FOLLOWING ROLL SLICING MACHINE TENDER. NO ADDITIONAL NEEDS AT THIS TIME. CALL LIGHT AND PERSONAL BELONGINGS WITHIN REACH.
--- NOTE | 2020-06-02 04:25 | NUR ---
IV DC CATH INTACT, PT STATES FEELS MUCH BETTER. RX AND INSTRUCT PROVIDED, PT VERBALIZES UNDERSTANDING OF INSTRUCT AND F/U. TO RETURN TO ER IF WORSE OR CONCERNS.
== END 2020-06-02 04:27 | disposition home or self-care (01) ==
LOC: ED 03:38
DX: K52.29 Other allergic and dietetic gastroenteritis and colitis (principal); R10.84 Generalized abdominal pain; R11.2 Nausea with vomiting, unspecified; R19.7 Diarrhea, unspecified; I49.3 Ventricular premature depolarization; R94.31 Abnormal electrocardiogram [ECG] [EKG]; I45.9 Conduction disorder, unspecified; I10 Essential (primary) hypertension; E11.9 Type 2 diabetes mellitus without complications; K21.9 Gastro-esophageal reflux disease without esophagitis; E78.5 Hyperlipidemia, unspecified; E78.00 Pure hypercholesterolemia, unspecified
CPT/HCPCS: 36415; 80053; 80320; 83690; 84484; 85025; 93005; 96361; 96372; 96374; 96375; 99284; J2270; J2405; J2550; J7030; G0480

== ENCOUNTER 2020-11-21 05:08 | Emergency (ER) | payer MEDICAID ==
[~2020-11-21] VITALS: Ht 175.3 cm; Wt 80.0 kg
--- NOTE | 2020-11-21 06:55 | NUR ---
REPORT RECEIVED FROM HANNAH HAYES. PT LAYING ON GURNEY AWAKE & TALKING ON CELL PHONE, RESPONDS APPROP TO STAFF, C/O BACK PAIN- AWAITING ERP ORDERS, COMFORT MEASURES PROVIDED, CALL LIGHT WITHIN REACH.
--- NOTE | 2020-11-21 06:56 | NUR ---
Report given to FREDDY Nguyễn
[2020-11-21] MEDS ORDERED: ONDANSETRON ODT 4 MG PO ONE (07:30)
[2020-11-21] MEDS ORDERED: KETOROLAC 30 MG/1 ML IM ONE (07:30)
[2020-11-21] MEDS ORDERED: ONDANSETRON ODT 4 MG ONE (07:41)
[2020-11-21] MEDS ORDERED: KETOROLAC 30 MG/1 ML ONE (07:41)
--- NOTE | 2020-11-21 08:02 | NUR ---
PT AMBULATED STEADILY TO , BACK TO [facility] WITH EYES CLOSED, ABLE TO DOZE OFF BUT RESPONDS APPROP TO STAFF WITH VERBAL STIMULI, NAD, JUICE & CRACKERS GIVEN FOR FSBS, CALL LIGHT WITHIN REACH.
--- NOTE | 2020-11-21 09:05 | NUR ---
Gianna rob in ED - 11/21/20 at 0914 by JUANCARLOS PT LAYING ON GURNEY WITH EYES CLOSED, ABLE TO DOZE OFF BUT RESPONDS APPROP TO STAFF WITH VERBAL STIMULI, NAD, NO NEEDS AT THIS TIME, CALL LIGHT WITHIN REACH. AWAITNG XR
[2020-11-21 10:05] VITALS: BP 147/100
--- NOTE | 2020-11-21 10:06 | NUR ---
Patient given discharge instructions and Rx, they have confirmed that they understand the instructions. Patient ambulatory with steady gait. NAD, all questions answered appropriately, denies additional needs at this time. No personal belongings left in room after discharge.
== END 2020-11-21 10:12 | disposition home or self-care (01) ==
LOC: ED 06:20
DX: S39.012A Strain of muscle, fascia and tendon of lower back, initial encounter (principal); S16.1XXA Strain of muscle, fascia and tendon at neck level, initial encounter; M25.551 Pain in right hip; R55 Syncope and collapse; I10 Essential (primary) hypertension; E78.5 Hyperlipidemia, unspecified; E78.00 Pure hypercholesterolemia, unspecified; E11.65 Type 2 diabetes mellitus with hyperglycemia; K21.9 Gastro-esophageal reflux disease without esophagitis; V47.0XXA Car driver injured in collision with fixed or stationary object in nontraffic accident, initial encounter; Y93.89 Activity, other specified; Y92.410 Unspecified street and highway as the place of occurrence of the external cause; Y99.8 Other external cause status
CPT/HCPCS: 70450; 72110; 72125; 82962; 96372; 99285; J1885; Q0162